=== PATIENT | female | born 1985 | race Caucasian/White ===

== ENCOUNTER 2016-12-04 06:57 | Day surgery (SDC) | payer BC ==
[~2016-12-04 06:57] MED LIST: Lactated Ringers 1,000 ML IV SCH; Sodium Chloride 0.9% 10 ML Syringe FLUSH PRN; ceFAZolin 1 GM in Sodium Chloride 0.9% 50 ML IV ONE
[2016-12-04] MEDS ORDERED: Dexamethasone 4 MG/ML 5 ML MDV IVPUSH ONE (08:00)
[2016-12-04] MEDS ORDERED: Ketorolac 30 MG/ML SDV IVPUSH ONE (08:00)
[2016-12-04] MEDS ORDERED: Propofol 200 MG/20 ML SDV IV ONE (08:00)
[2016-12-04] MEDS ORDERED: fentaNYL 100 MCG/2 ML SDV IV ONE (08:00)
[2016-12-04] MEDS ORDERED: Ondansetron 4 MG/2 ML SDV IVPUSH ONE (08:00)
[2016-12-04] MEDS ORDERED: Midazolam 1 MG/ML 2 ML SDV IV ONE (08:00)
[2016-12-04] MEDS ORDERED: Bupivacaine 0.5% 30 ML SDV ONE (08:21)
[2016-12-04] MEDS ORDERED: Lidocaine 1% with EPINEPHrine 1:100,000 20 ML MDV ONE (08:22)
--- NOTE | 2016-12-04 08:48 | PCM.OPNOTE ---
- General Post-Op/Procedure Note Date of Surgery/Procedure: 12/04/16 Operative Procedure(s): umbilical hernia repair. left flank lipoma removal Findings: 2 cm umbilical hernia 4x2 cm lipoma Pre Op Diagnosis: umbilical hernia. flank lipoma Post-Op Diagnosis: Same Anesthesia Technique: General LMA, Local (10 ml 1% lido with epi/0.5% buvipicaine) Primary Surgeon: Ricardo Mckinnon Anesthesia Provider: Alejandrina Peng Pathology: lipoma Complications: None Condition: Good Free Text/Narrative:: see dictation [id number]
[2016-12-04] MEDS ORDERED: Acetaminophen/HYDROcodone 325-5 MG Tab PO PRN (08:50)
[2016-12-04 10:29] VITALS: BP 105/60
--- NOTE | 2016-12-04 13:51 | OR ---
DATE OF OPERATION: 12/04/2016 SURGEON: Ricardo Mckinnon MD PROCEDURE PERFORMED: Umbilical hernia repair and excision of left flank lipoma. PREOPERATIVE DIAGNOSIS: Umbilical hernia and left flank lipoma. POSTOPERATIVE DIAGNOSIS: Umbilical hernia and left flank lipoma. INDICATIONS FOR PROCEDURE: This is a 31-year-old white female who had 2 issues, 1 was a symptomatic umbilical hernia, the 2nd was a small mobile lipoma on her left flank, which interfered with her clothes. This measured approximately 4 cm in length and approximately 2 cm in width. She was offered and accepted excisional biopsy. DESCRIPTION OF OPERATION: After an excellent LMA anesthetic was administered, the patient was prepped and draped in usual sterile manner. Our local was used to infiltrate the area around the umbilicus and a curvilinear incision was made at the base of the umbilicus. A combination of sharp and electrocautery dissection was carried out mobilizing the hernia based on the anterior abdominal wall. The hernia sac was then transected from the posterior aspect of the umbilicus. This was then trimmed down to the level. Preperitoneal fat was reduced. After careful dissection, the defect was then repaired with a vest- over-pants technique using interrupted 0 Ethibond and horizontal mattress suture. Additional 0 Ethibond was used to tack the superior flap down to the anterior abdominal wall and the umbilicus was tacked to the anterior abdominal wall with one of our Ethibond sutures. The area was irrigated. The skin was closed with a running subcu 4-0 Vicryl. Attention was then turned to the left flank. More local was used to infiltrate the area. A small 3-cm incision was made. More local was injected. The subcu tissue was bluntly dissected, lipoma was grasped and then dissected free using electrocautery. The specimen was passed over the field and then the skin defect was closed with a running subcu 4- 0 Vicryl. Steri-Strips were applied to both wounds and were dressed. Needle, sponge and instrument counts were reported as correct. The patient was taken to recovery in good condition. /[id number] /MODL
== END 2016-12-04 10:15 | disposition home or self-care (01) ==
LOC: FB.SDS 06:57
PROVIDERS: ATTEND Surgery
DX: D17.1 Benign lipomatous neoplasm of skin and subcutaneous tissue of trunk (principal); K42.9 Umbilical hernia without obstruction or gangrene; Z98.890 Other specified postprocedural states
CPT/HCPCS: 11404; 12032; 49585; 81025; 88307; A9270; J0690; J1100; J1885; J2250; J2405; J2704; J3010; J7050; J7120

== ENCOUNTER 2017-11-29 06:47 | Day surgery (SDC) | payer BC ==
[~2017-11-29 06:47] MED LIST changes: +ceFAZolin 1 GM Vial IVPUSH ONE
[2017-11-29] MEDS ORDERED: Acetaminophen 325 MG Tab PO ONE (07:27)
[2017-11-29] MEDS ORDERED: Propofol 200 MG/20 ML SDV IV ONE (08:00)
[2017-11-29] MEDS ORDERED: Ondansetron 4 MG/2 ML SDV IVPUSH ONE (08:00)
[2017-11-29] MEDS ORDERED: Lidocaine 1% 30 ML SDV INJECT ONE (08:00)
[2017-11-29] MEDS ORDERED: Lactated Ringers 1,000 ML IV ONE (08:00)
[2017-11-29] MEDS ORDERED: Dexamethasone 4 MG/ML 5 ML MDV IVPUSH ONE (08:00)
[2017-11-29] MEDS ORDERED: Ketorolac 30 MG/ML SDV IVPUSH ONE (08:00)
[2017-11-29] MEDS ORDERED: fentaNYL 100 MCG/2 ML SDV IV ONE (08:00)
[2017-11-29] MEDS ORDERED: Midazolam 1 MG/ML 2 ML SDV IV ONE (08:00)
[2017-11-29] MEDS ORDERED: Bupivacaine 0.5% 30 ML SDV INJECT ONE (08:16)
[2017-11-29] MEDS ORDERED: Lidocaine 1% with EPINEPHrine 1:100,000 20 ML MDV INJECT ONE (08:16)
--- NOTE | 2017-11-29 08:46 | PCM.OPNOTE ---
- General Post-Op/Procedure Note Date of Surgery/Procedure: 11/29/17 Operative Procedure(s): umbilical hernia repair Findings: 2 cm hernia Pre Op Diagnosis: recurrent umbilical hernia Post-Op Diagnosis: Same Anesthesia Technique: General LMA, Local (6 ml 1% lido with epi/0.5% buvipicaine ) Primary Surgeon: Ricardo Mckinnon Anesthesia Provider: Criselda Antoine Pathology: none EBL in mLs: 2 Complications: None Condition: Good Free Text/Narrative:: see dictation
[2017-11-29] MEDS ORDERED: Acetaminophen/HYDROcodone 325-5 MG Tab PO PRN (08:48)
--- NOTE | 2017-11-29 09:35 | OR ---
DATE OF OPERATION: 11/29/2017 SURGEON: Ricardo Mckinnon MD PROCEDURE PERFORMED: Repair of recurrent umbilical hernia with mesh. PREOPERATIVE DIAGNOSIS: Recurrent umbilical hernia. POSTOPERATIVE DIAGNOSIS: Recurrent umbilical hernia. INDICATIONS FOR PROCEDURE: This is a 32-year-old white female who presents with a recurrence of her umbilical hernia. She in the past had undergone a primary repair without mesh, noticed a return of a reducible bulge in the periumbilical area and was offered and accepted a repair. INTRAOPERATIVE FINDINGS: A 2.5 cm defect was encountered. This was repaired with a Ventralex ST hernia patch, 8 cm in diameter, reference #[id number], lot #[id number], expiration date 01/22/2019, and a total of 6 mL of 1:1 mixture of 1% lidocaine with epinephrine and 0.5% bupivacaine was used to infiltrate the area. DESCRIPTION OF PROCEDURE: After an excellent LMA anesthetic was administered, the patient was prepped and draped in the usual sterile manner. Local was used to infiltrate in a circular area around the umbilicus. Curvilinear incision was made. A combination of blunt and sharp dissection was carried out circumferentially around the hernia sac. The hernia sac was entered sharply and dissected from the posterior aspect of the umbilicus. The excess sac was exposed. The preperitoneal fat was then carefully dissected free from the anterior aspect of the anterior abdominal wall creating a nice flat area for her mesh. Her moistened mesh was then inserted, tacked into several positions circumferentially due to the diameter using a Stat Tacker. The defect was then closed with a running 0 Prolene. 0 Vicryl was used to then tack the umbilicus to the anterior abdominal wall. The skin was then closed with a running 4-0 Vicryl. Needle, sponge, and instrument counts were reported as correct. /[id number] /MODL
[2017-11-29 12:23] VITALS: BP 112/60
== END 2017-11-29 10:56 | disposition home or self-care (01) ==
LOC: FB.SDS 06:47
PROVIDERS: ATTEND Surgery
DX: K42.9 Umbilical hernia without obstruction or gangrene (principal)
CPT/HCPCS: 49652; A9270; C1781; J0690; J3490; J7120; J1100; J1885; J2250; J2405; J2704; J3010

== ENCOUNTER 2021-09-07 13:18 | Emergency (ER) | payer BC ==
[2021-09-07 15:16] LABS: ESTIMATED GFR 126 mL/min (>60)
[2021-09-07 17:54] VITALS: BP 130/85; PULSE 74
== END 2021-09-07 16:30 | disposition home or self-care (01) ==
LOC: FB.ED 13:18
DX: U07.1 COVID-19 (principal); R10.32 Left lower quadrant pain; Z79.899 Other long term (current) drug therapy
CPT/HCPCS: 36415; 80048; 81001; 85025; 99284; U0002